=== PATIENT | female | born 1940 | race Caucasian/White ===

== ENCOUNTER 2016-11-05 11:52 | Emergency (ER) | payer MEDICARE, OTHER ==
[~2016-11-05 11:52] MED LIST: ARAVA20 MG PO; ASPIRIN81 MG PO; CATAPRES0.1 MG PO; CERTAGEN1 EACH PO; COLESTID1 GM PO; FEOSOL325 MG PO; FOLIC ACID1 MG PO; LOVAZA1 GM PO; MAG-OXIDE 400M400 MG PO; NORVASC 10MG TA10 MG PO; OMEPRAZOLE40 MG PO; PLAQUENIL200 M1 PO; PRINIVIL20 MG PO; PROBIOTIC1 EAC1 PO; SYNTHROID50 MCG PO; TENORMIN50 MG PO; VITAMIN B-121000 MC1 PO; VITAMIN D2000 UNI1 PO; ZOCOR20 MG PO
[2016-11-05 12:35] LABS: BASOPHIL 1.7 % (0-2); EOSINOPHIL 8.5 % (0-7); HCT 28.1 % (37.0-47.0); HGB 9.1 g/dl (12.5-16.0); LYMPHOCYTE 37.8 % (15-48); MCH 30.6 pg (25.0-31.0); MCHC 32.4 g/dL (32.0-36.0); MCV 94.6 fL (78.0-100.0); MONOCYTE 12.5 % (0-12); MPV 9.2 fL (6.0-9.5); NEUTROPHIL 39.5 % (41-80); PLT 357 K/uL (150-400); RBC 2.97 M/uL (4.20-5.40); RDW 14.8 % (11.5-14.0); WBC 5.3 K/uL (4.0-10.5)
[2016-11-05 12:56] LABS: INR 0.95 (0.9-1.2); PROTHROMBIN TIME 12.3 SECONDS (11.7-14.0); PTT 26.2 SECONDS (23.2-31.4)
[2016-11-05 13:03] LABS: ALBUMIN 4.3 g/dL (3.4-4.8); BILIRUBIN - TOTAL 0.3 mg/dL (0.1-1.0); CREATININE 1.6 mg/dL (0.5-1.0); GLOBULIN (CALCULATION) 2.6 g/dL (2.2-4.2); POTASSIUM 4.6 mmol/L (3.5-5.1); TOTAL PROTEIN 6.9 g/dL (6.4-8.3); TROPONIN T < 0.010 ng/mL
[2016-11-05 13:14] LABS: PRO-BNP 791 pg/mL (0-125)
== END 2016-11-05 16:11 | disposition home or self-care (01) ==
LOC: FER 11:52
PROVIDERS: Internal Medicine
DX: N17.9 Acute kidney failure, unspecified (principal); E86.0 Dehydration; R19.7 Diarrhea, unspecified; I12.9 Hypertensive chronic kidney disease with stage 1 through stage 4 chronic kidney disease, or unspecified chronic kidney disease; N18.9 Chronic kidney disease, unspecified; M06.9 Rheumatoid arthritis, unspecified; D64.9 Anemia, unspecified; Z79.899 Other long term (current) drug therapy; Z79.82 Long term (current) use of aspirin
CPT/HCPCS: 36415; 70450; 71010; 80053; 83880; 84484; 85025; 85610; 85730; 93005

== ENCOUNTER 2021-07-10 11:45 | Emergency (ER) | payer MEDICARE, OTHER ==
[~2021-07-10 11:45] MED LIST changes: +CALCIUM; +LASIX20 MG PO; +VIT B12
[2021-07-10 13:22] LABS: BASOPHIL 0.1 % (0-2); EOSINOPHIL 0.3 % (0-7); HCT 27.4 % (37.0-47.0); HGB 8.5 g/dl (12.5-16.0); LYMPHOCYTE 11.5 % (15-48); MCH 30.1 pg (25.0-31.0); MCV 97.2 fL (78.0-100.0); MONOCYTE 5.1 % (0-12); MPV 11.6 fL (6.0-9.5); NEUTROPHIL 82.3 % (41-80); NRBC 0; PLT 179 K/uL (150-400); RBC 2.82 M/uL (4.20-5.40); RDW 17.2 % (11.5-14.0); WBC 9.9 K/uL (4.0-10.5)
[2021-07-10 13:36] LABS: BUN/CREAT RATIO (CALC) 17.6 RATIO; CREATININE 2.89 mg/dL (0.51-0.95); POTASSIUM 4.1 mmol/L (3.5-5.1)
[2021-07-10] MEDS ORDERED: ZOFRAN4 M1 PO (14:57)
[2021-07-10 15:21] LABS: BILIRUBIN NEGATIVE (NEGATIVE); BLOOD 1+ Ery/uL (NEGATIVE); CLARITY CLEAR (CLEAR); COLOR YELLOW (YELLOW); GLUCOSE (U) NORMAL (NORMAL); LEUKOCYTES NEGATIVE Leu/uL (NEGATIVE); NITRITE NEGATIVE (NEGATIVE); PROTEIN 2+ mg/dL (NEGATIVE); UROBILINOGEN 0.2 mg/dL (0.2-1.0)
[2021-07-10 15:28] LABS: URINARY RBC RARE
[2021-07-10 15:29] LABS: GRANULAR CASTS TRACE
== END 2021-07-10 15:45 | disposition home or self-care (01) ==
LOC: FER 11:45
PROVIDERS: Nurse Practitioner Family
DX: U07.1 COVID-19 (principal); I12.9 Hypertensive chronic kidney disease with stage 1 through stage 4 chronic kidney disease, or unspecified chronic kidney disease; N18.9 Chronic kidney disease, unspecified; Z88.8 Allergy status to other drugs, medicaments and biological substances
CPT/HCPCS: 36415; 80048; 81001; 85025; 94640; 94664; J1100; J2405; J7030

== ENCOUNTER 2021-07-12 14:00 | Inpatient (IN) | payer MEDICARE, OTHER ==
[~2021-07-12] VITALS: Ht 162.6 cm; Wt 68.7 kg
[~2021-07-12 14:00] MED LIST changes: +ZOFRAN4 M1 PO
[2021-07-12 14:47] LABS: BASOPHIL 0.1 % (0-2); EOSINOPHIL 0.2 % (0-7); HCT 28.1 % (37.0-47.0); HGB 8.6 g/dl (12.5-16.0); LYMPHOCYTE 13.5 % (15-48); MCH 29.4 pg (25.0-31.0); MCHC 30.6 g/dL (32.0-36.0); MCV 95.9 fL (78.0-100.0); MONOCYTE 10.8 % (0-12); MPV 11.2 fL (6.0-9.5); NEUTROPHIL 74.7 % (41-80); NRBC 0; PLT 179 K/uL (150-400); RBC 2.93 M/uL (4.20-5.40); WBC 8.7 K/uL (4.0-10.5)
[2021-07-12 14:58] LABS: INR 0.94 (0.9-1.2); PTT 26.4 SECONDS (24.4-34.7)
[2021-07-12 14:59] LABS: D-DIMER 3.11 ug/mLFEU (0.00-0.41)
[2021-07-12 15:08] LABS: ALBUMIN 2.5 g/dL (3.4-5.0); BILIRUBIN - TOTAL 0.2 mg/dL (0.2-1.0); BUN/CREAT RATIO (CALC) 19.1 RATIO; CREATININE 2.67 mg/dL (0.51-0.95); GLOBULIN (CALCULATION) 3.1 g/dL; POTASSIUM 4.5 mmol/L (3.5-5.1); TOTAL PROTEIN 5.6 g/dL (6.4-8.2)
[2021-07-12 15:10] LABS: LACTIC ACID 0.5 mmol/L (0.4-1.9)
[2021-07-12] MEDS ORDERED: ZOLOFT50 MG PO (17:57)
[2021-07-12] MEDS ORDERED: MINOXIDIL2.5 MG PO (17:59)
[2021-07-12] MEDS ORDERED: PREDNISONE 10MG10 MG PO (18:00)
[2021-07-12] MEDS ORDERED: ALLERGY PILL (18:01)
[2021-07-13 05:59] LABS: BASOPHIL 0.2 % (0-2); EOSINOPHIL 0 % (0-7); HCT 24.5 % (37.0-47.0); HGB 7.5 g/dl (12.5-16.0); LYMPHOCYTE 7.4 % (15-48); MCH 28.5 pg (25.0-31.0); MCHC 30.6 g/dL (32.0-36.0); MCV 93.2 fL (78.0-100.0); MONOCYTE 5.1 % (0-12); MPV 11.6 fL (6.0-9.5); NEUTROPHIL 85.6 % (41-80); NRBC 0; PLT 158 K/uL (150-400); RBC 2.63 M/uL (4.20-5.40); RDW 16.7 % (11.5-14.0); WBC 4.7 K/uL (4.0-10.5)
[2021-07-13 06:30] LABS: BILIRUBIN - TOTAL 0.2 mg/dL (0.2-1.0); BUN/CREAT RATIO (CALC) 20.2 RATIO; CREATININE 2.48 mg/dL (0.51-0.95); GLOBULIN (CALCULATION) 3.3 g/dL; POTASSIUM 4.5 mmol/L (3.5-5.1); TOTAL PROTEIN 5.3 g/dL (6.4-8.2)
--- NOTE | 2021-07-14 01:05 | NUR ---
AFTER TAKING MEDS PT ANNOUNCED THAT "NOW THAT [SHE] THINKS ABOUT IT, THE DR TOOK [HER] OFF CATAPRES. [employer] ADVISED.
[2021-07-14 06:06] LABS: BASOPHIL 0.1 % (0-2); EOSINOPHIL 0.4 % (0-7); HCT 25.4 % (37.0-47.0); LYMPHOCYTE 9.4 % (15-48); MCH 29.4 pg (25.0-31.0); MCHC 31.5 g/dL (32.0-36.0); MCV 93.4 fL (78.0-100.0); MONOCYTE 9.7 % (0-12); MPV 11.3 fL (6.0-9.5); NEUTROPHIL 79.1 % (41-80); NRBC 0; PLT 180 K/uL (150-400); RBC 2.72 M/uL (4.20-5.40); RDW 17.1 % (11.5-14.0); WBC 7.8 K/uL (4.0-10.5)
[2021-07-14 07:18] LABS: ALBUMIN 2.1 g/dL (3.4-5.0); BILIRUBIN - TOTAL 0.2 mg/dL (0.2-1.0); BUN/CREAT RATIO (CALC) 19.6 RATIO; CREATININE 2.25 mg/dL (0.51-0.95); GLOBULIN (CALCULATION) 3.1 g/dL; POTASSIUM 3.8 mmol/L (3.5-5.1); TOTAL PROTEIN 5.2 g/dL (6.4-8.2)
[2021-07-14] MEDS ORDERED: VITAMIN B-121000 MC1 PO ×2 (22:10→22:11)
[2021-07-14] MEDS ORDERED: COREG 6.25MG6.25 MG PO (22:15)
[2021-07-14] MEDS ORDERED: ASPIRIN EC81 MG PO (22:18)
[2021-07-14] MEDS ORDERED: LOVAZA1 GM PO (22:23)
[2021-07-15 06:39] LABS: BASOPHIL 0.1 % (0-2); EOSINOPHIL 0 % (0-7); HCT 27.1 % (37.0-47.0); HGB 8.5 g/dl (12.5-16.0); MCH 29.3 pg (25.0-31.0); MCHC 31.4 g/dL (32.0-36.0); MCV 93.4 fL (78.0-100.0); MONOCYTE 5.2 % (0-12); MPV 11.4 fL (6.0-9.5); NEUTROPHIL 84.8 % (41-80); NRBC 0; PLT 193 K/uL (150-400)
[2021-07-15 07:06] LABS: ALBUMIN 2.1 g/dL (3.4-5.0); BILIRUBIN - TOTAL 0.3 mg/dL (0.2-1.0); BUN/CREAT RATIO (CALC) 21.6 RATIO; CREATININE 1.9 mg/dL (0.51-0.95); GLOBULIN (CALCULATION) 3.5 g/dL; POTASSIUM 3.9 mmol/L (3.5-5.1); TOTAL PROTEIN 5.6 g/dL (6.4-8.2)
[2021-07-16 07:19] LABS: BUN/CREAT RATIO (CALC) 24.6 RATIO; CREATININE 1.71 mg/dL (0.51-0.95); POTASSIUM 4.1 mmol/L (3.5-5.1)
--- NOTE | 2021-07-16 10:20 | NUR ---
07/16/21 Ms. Soliman lives at home with her spouse. Referrals have been made to [facility] for 02 at 2 L and [facility] per patient request. Discharge is anticipated for today. Patient has a pulse-ox.
[2021-07-16] MEDS ORDERED: CEFDINIR300 MG PO (14:19)
[2021-07-16] MEDS ORDERED: DEXAMETHASONE 2M2 MG PO (14:19)
[2021-07-16] MEDS ORDERED: DOXYCYCLINE MO100 MG PO (14:19)
[2021-07-16] MEDS ORDERED: VENTOLIN HFA IN18 GM INH (14:19)
== END 2021-07-16 17:10 | disposition home health service (06) | DRG 177 ==
LOC: FER 14:00 → FMS 15:38
PROVIDERS: Allergy & Immunology Allergy; Emergency Medicine; ADMIT Family Medicine
PROC: 8E0ZXY6 Isolation (ICD-10-PCS; principal; 2021-07-12)
DX: U07.1 COVID-19 (principal); J12.82 Pneumonia due to coronavirus disease 2019; J96.01 Acute respiratory failure with hypoxia; J18.9 Pneumonia, unspecified organism; N17.9 Acute kidney failure, unspecified; N18.4 Chronic kidney disease, stage 4 (severe); E87.1 Hypo-osmolality and hyponatremia; I12.9 Hypertensive chronic kidney disease with stage 1 through stage 4 chronic kidney disease, or unspecified chronic kidney disease; D63.1 Anemia in chronic kidney disease; E03.9 Hypothyroidism, unspecified; M06.9 Rheumatoid arthritis, unspecified; F41.9 Anxiety disorder, unspecified; M32.9 Systemic lupus erythematosus, unspecified; Z79.899 Other long term (current) drug therapy; Z79.82 Long term (current) use of aspirin; Z90.49 Acquired absence of other specified parts of digestive tract; Z79.890 Hormone replacement therapy; Z87.891 Personal history of nicotine dependence; Z86.73 Personal history of transient ischemic attack (TIA), and cerebral infarction without residual deficits
CPT/HCPCS: 36415; 36600; 71045; 71250; 78580; 80048; 80053; 82728; 82803; 83605; 83880; 84484; 85025; 85379; 85610; 85730; 87040; 87449; 93005; 94010; 94640; 94664; 94760; 94762; A9540; C9399; G0378; J0360; J0456; J0696; J0780; J1100; J2405; J3490; J7030; J7050; J8540; U0002

== ENCOUNTER 2021-07-31 11:58 | Emergency (ER) | payer MEDICARE, OTHER ==
[~2021-07-31 11:58] MED LIST changes: +ALLERGY PILL; +ASPIRIN EC81 MG PO; +CEFDINIR300 MG PO; +COREG 6.25MG6.25 MG PO; +DEXAMETHASONE 2M2 MG PO; +DOXYCYCLINE MO100 MG PO; +MINOXIDIL2.5 MG PO; +PREDNISONE 10MG10 MG PO; +VENTOLIN HFA IN18 GM INH; +ZOLOFT50 MG PO
[2021-07-31] MEDS ORDERED: NORCO 5-325 TA1 EACH PO (21:29)
== END 2021-07-31 22:05 | disposition home or self-care (01) ==
LOC: FER 11:58
DX: M25.512 Pain in left shoulder (principal); I12.9 Hypertensive chronic kidney disease with stage 1 through stage 4 chronic kidney disease, or unspecified chronic kidney disease; N18.9 Chronic kidney disease, unspecified; Z88.8 Allergy status to other drugs, medicaments and biological substances
CPT/HCPCS: 73030

== ENCOUNTER 2021-09-12 16:12 | Emergency (ER) | payer MEDICARE, OTHER ==
[~2021-09-12] VITALS: Ht 162.6 cm; Wt 65.3 kg
[~2021-09-12 16:12] MED LIST changes: +NORCO 5-325 TA1 EACH PO
[2021-09-12 16:58] LABS: BASOPHIL 0.3 % (0-2); EOSINOPHIL 0.2 % (0-7); HCT 20.4 % (37.0-47.0); LYMPHOCYTE 12.2 % (15-48); MCH 28.4 pg (25.0-31.0); MCHC 30.4 g/dL (32.0-36.0); MCV 93.6 fL (78.0-100.0); MONOCYTE 4.7 % (0-12); MPV 10.7 fL (6.0-9.5); NEUTROPHIL 81.6 % (41-80); NRBC 0; PLT 213 K/uL (150-400); RBC 2.18 M/uL (4.20-5.40); RDW 17.3 % (11.5-14.0); WBC 6.2 K/uL (4.0-10.5)
[2021-09-12 17:12] LABS: HGB 6.2 g/dl (12.5-16.0)
[2021-09-12 17:28] LABS: BUN/CREAT RATIO (CALC) 23.4 RATIO; CREATININE 2.05 mg/dL (0.51-0.95); POTASSIUM 4.6 mmol/L (3.5-5.1)
[2021-09-13 00:36] LABS: HCT 24.3 % (37.0-47.0); HGB 7.7 g/dL (12.5-16.0)
[2021-09-13 01:11] LABS: HCT 24.7 % (37.0-47.0); HGB 7.6 g/dL (12.5-16.0)
== END 2021-09-13 02:12 | disposition home or self-care (01) ==
LOC: FER 16:12
PROVIDERS: Emergency Medicine; Internal Medicine
DX: I12.9 Hypertensive chronic kidney disease with stage 1 through stage 4 chronic kidney disease, or unspecified chronic kidney disease (principal); N18.4 Chronic kidney disease, stage 4 (severe); D63.1 Anemia in chronic kidney disease; Z88.8 Allergy status to other drugs, medicaments and biological substances; Z79.899 Other long term (current) drug therapy
CPT/HCPCS: 36415; 36430; 80048; 85014; 85018; 85025; 86850; 86900; 86901; 86922; 96372; J3490; P9016

== ENCOUNTER 2021-10-17 11:37 | Day surgery (SDCO) | payer MEDICARE, OTHER ==
[~2021-10-17] VITALS: Ht 162.6 cm; Wt 64.2 kg
[2021-10-17 15:50] LABS: BASOPHIL 0.2 % (0-2); EOSINOPHIL 0.2 % (0-7); HCT 20.2 % (37.0-47.0); LYMPHOCYTE 11.3 % (15-48); MCH 30.5 pg (25.0-31.0); MCHC 30.2 g/dL (32.0-36.0); MPV 10.8 fL (6.0-9.5); NEUTROPHIL 81.6 % (41-80); PLT 198 K/uL (150-400); RDW 17.5 % (11.5-14.0)
[2021-10-17 16:01] LABS: HGB 6.1 g/dl (12.5-16.0)
[2021-10-17 16:21] LABS: BUN/CREAT RATIO (CALC) 16.5 RATIO; CREATININE 2.3 mg/dL (0.51-0.95); POTASSIUM 4.1 mmol/L (3.5-5.1)
[2021-10-17 16:45] LABS: BAND 1 % (0-10); LYMPHOCYTE(M) 5 % (15-48); MONOCYTE(M) 6 % (0-12); NEUTROPHILS(M) 88 % (41-80); TOTAL CELL COUNT 100
[2021-10-17 16:46] LABS: PLATELET ESTIMATE NORMAL; PLATELET MORPHOLOGY NORMAL
[2021-10-17] MEDS ORDERED: LEFLUNOMIDE20 MG PO (18:46)
[2021-10-17] MEDS ORDERED: PLAQUENIL200 MG PO (18:48)
[2021-10-17] MEDS ORDERED: COREG25 MG PO (18:49)
[2021-10-17] MEDS ORDERED: ZESTRIL40 MG PO (18:50)
[2021-10-17] MEDS ORDERED: ASPIRIN EC81 MG PO (19:14)
[2021-10-17] MEDS ORDERED: LASIX40 MG PO (19:16)
[2021-10-17] MEDS ORDERED: PREDNISONE 10MG10 MG PO (19:19)
[2021-10-18 10:03] LABS: BASOPHIL 0.7 % (0-2); EOSINOPHIL 1.9 % (0-7); HCT 30.9 % (37.0-47.0); LYMPHOCYTE 14.8 % (15-48); MCH 30.6 pg (25.0-31.0); MCHC 32.7 g/dL (32.0-36.0); MPV 10.6 fL (6.0-9.5); NEUTROPHIL 65.5 % (41-80); NRBC 1.5; PLT 182 K/uL (150-400); RDW 18.1 % (11.5-14.0); WBC 5.3 K/uL (4.0-10.5)
[2021-10-18 10:06] LABS: HGB 10.1 g/dl (12.5-16.0); MCV 93.6 fL (78.0-100.0)
[2021-10-18] MEDS ORDERED: PROTONIX 40MG T40 MG PO (11:49)
[2021-10-18] MEDS ORDERED: LOVAZA1 GM PO (15:35)
== END 2021-10-18 16:24 | disposition home or self-care (01) ==
LOC: FMS 11:37
PROVIDERS: Surgery; ADMIT Family Medicine
DX: D62 Acute posthemorrhagic anemia (principal); K57.30 Diverticulosis of large intestine without perforation or abscess without bleeding; K29.50 Unspecified chronic gastritis without bleeding; K29.80 Duodenitis without bleeding; K44.9 Diaphragmatic hernia without obstruction or gangrene; E03.9 Hypothyroidism, unspecified; M32.9 Systemic lupus erythematosus, unspecified; M81.0 Age-related osteoporosis without current pathological fracture; I12.9 Hypertensive chronic kidney disease with stage 1 through stage 4 chronic kidney disease, or unspecified chronic kidney disease; N18.4 Chronic kidney disease, stage 4 (severe); E78.5 Hyperlipidemia, unspecified; F41.9 Anxiety disorder, unspecified; Z86.73 Personal history of transient ischemic attack (TIA), and cerebral infarction without residual deficits; Z87.891 Personal history of nicotine dependence; Z88.8 Allergy status to other drugs, medicaments and biological substances; Z79.899 Other long term (current) drug therapy; Z20.822 Contact with and (suspected) exposure to COVID-19
CPT/HCPCS: 36415; 36430; 80048; 82607; 83540; 83550; 85025; 86850; 86900; 86901; 86922; 94010; 94640; C9113; G0378; J2250; J2704; P9016; U0002